=== PATIENT | female | born 1990 | race Hispanic/Latino ===

== ENCOUNTER 2024-01-28 08:07 | Emergency (ER) | payer OTHER ==
[~2024-01-28] VITALS: Ht 167.6 cm; Wt 115.7 kg
[2024-01-28 08:15] VITALS: PULSE 85; RESP 15; TEMP 98.2; O2SAT 100
[2024-01-28] MEDS ORDERED: MEDROL4 M2 PO (08:47)
[2024-01-28] MEDS: PREDNISONE 20 MG TAB PO ONE (08:51)
[2024-01-28] MEDS: DIPHENHYDRAMINE HCL 25 MG CAP PO ONE (08:51)
== END 2024-01-28 08:55 | disposition home or self-care (01) ==
LOC: ER 08:21
DX: L25.9 Unspecified contact dermatitis, unspecified cause (principal)
CPT/HCPCS: 99283; J7512